=== PATIENT | male | born 2000 | race Hispanic/Latino ===

== ENCOUNTER 2021-09-20 12:14 | Emergency (ER) | payer OTHER, SELFPAY ==
[2021-09-20] MEDS ORDERED: BUPIVACAINE 0.5% PF 10 ML VIAL ONE (12:45)
--- NOTE | 2021-09-20 13:19 | EDPHYS ---
Physician Documentation [facility] Name: Misha Mas Age: 21 yrs Sex: Male : 2000 Arrival Date: 09/20/2021 Time: 12:17 Bed 15 Private MD: ED Physician Angel Webb HPI: 09/20 13:12 This 21 yrs old Male presents to ER via Ambulatory with complaints of jmm Laceration To Hand. 13:12 Onset: The symptoms/episode began/occurred acutely, just prior to arrival. Associated jmm signs and symptoms: Pertinent negatives: dizziness, heavy bleeding, loss of consciousness, numbness distal to injury, suspected foreign body. The patient has not experienced similar symptoms in the past. 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 Historical: - Allergies: 12:28 No Known Allergies; ld1 - Home Meds: 12:28 None [Active]; ld1 - PMHx: 12:28 None; ld1 - PSHx: 12:28 None; ld1 - Immunization history:: Adult Immunizations not up to date, Client reports having NOT received the Covid vaccine. Last tetanus immunization: Not up to date. - Social history:: Smoking status: Reported history of juuling and/or vaping. Patient/guardian denies using alcohol, street drugs. ROS: 13:12 Constitutional: Negative for fever, chills, and weight loss, Cardiovascular: Negative jmm for chest pain, palpitations, and edema, Respiratory: Negative for shortness of breath, cough, wheezing, and pleuritic chest pain. 13:12 Skin: Positive for laceration(s). 13:12 All other systems are negative. Exam: 13:12 Constitutional: This is a well developed, well nourished patient who is awake, alert, jmm and in no acute distress. Head/Face: atraumatic. Eyes: EOMI, no conjunctival erythema appreciated ENT: Moist Mucus Membranes Neck: Trachea midline, Supple Chest/axilla: Normal chest wall appearance and motion. Cardiovascular: Regular rate and rhythm. No edema appreciated Respiratory: Normal respirations, no respiratory distress appreciated Abdomen/GI: Non distended, soft Back: Normal ROM 13:12 Skin: 2 cm to centimeter laceration noted to the left dorsal hand proximal to the first phalanx. 13:12 Neuro: Orientation: is normal, Mentation: is normal, Memory: is normal. 13:12 Psych: Behavior/mood is pleasant, cooperative. Vital Signs: 12:26 BP 138 / 84; Pulse 72; Resp 18; Temp 98.7(O); Pulse Ox 100% on R/A; Weight 72.57 kg; ld1 Height 5 ft. 5 in. (165.10 cm); Pain 0/10; 13:48 BP 132 / 70; Pulse 85; Resp 17; Pulse Ox 100% ; sm5 12:26 Body Mass Index 26.63 (72.57 kg, 165.10 cm) ld1 Laceration: 13:16 Wound Repair of 2cm ( 0.8in ) subcutaneous laceration to left hand. Distal jmm neuro/vascular/tendon intact. Anesthesia: Local anesthetic administered with 2 mls of 0.5% marcaine. Wound prep: Moderate cleansing with betadine by me. Skin closed with 4 5-0 Prolene using simple sutures and sterile technique. Patient tolerated well. MDM: 12:43 Patient medically screened. m 13:16 Data reviewed: vital signs, nurses notes. Counseling: I had a detailed discussion with [facility] the patient and/or guardian regarding: the historical points, exam findings, and any diagnostic results supporting the discharge/admit diagnosis, the need for outpatient follow up, to return to the emergency department if symptoms worsen or persist or if there are any questions or concerns that arise at home. ED course: Patient given patient given wound infection return precautions. Administered Medications: 13:20 Drug: Marcaine (bupivacaine) (0.5 %) 10 ml Volume: 10 ml; Route: Infiltration; sm5 Disposition: 17:32 Co-signature as Attending Physician, Angel Webb MD I agree with the assessment and rn plan of care. Attestation: The patient's history, exam findings, diagnostics, and a summary of any interventions or procedures was reviewed in detail with Jag NIX. Disposition Summary: 09/20/21 13:18 Discharge Ordered Location: Home [facility] Condition: Stable [facility] Diagnosis - Laceration of the left hand [facility] Followup: [facility] - With: Private Physician - When: 7 - 10 days - Reason: Recheck today's complaints, Continuance of care, Staple/Suture removal, Re-evaluation by your physician Discharge Instructions: - Discharge Summary Sheet jmm - Laceration Care, Adult francesca Forms: - Medication Reconciliation Form francesca - Thank You Letter francesca - Antibiotic Education francesca - Prescription Opioid Use francesca Signatures: Jag Cox PA PA jmm Nieto, Roman, MD MD rn Dibbern, Lauren, RN RN ld1 Lissy Chavez RN RN sm5
--- NOTE | 2021-09-20 13:19 | ER ---
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 Coronavirus screen: At this time, the client does not indicate any symptoms associated with coronavirus-19. Ebola Screen: No symptoms or risks identified at this time. Complicating Factors: The type of wound is a puncture. Initial Sepsis Screen: Does the patient meet any 2 criteria? No. Patient's initial sepsis screen is negative. Does the patient have a suspected source of infection? No. Patient's initial sepsis screen is negative. Risk Assessment: Do you want to hurt yourself or someone else? Patient reports no desire to harm self or others. Onset of symptoms was September 20, 2021. 12:26 Method Of Arrival: Ambulatory ld1 12:26 Acuity: CAREN 4 ld1 Triage Assessment: 12:28 General: Appears in no apparent distress. comfortable, Behavior is calm, cooperative, ld1 appropriate for age. Pain: Denies pain. EENT: No signs and/or symptoms were reported regarding the EENT system. Neuro: Level of Consciousness is awake, alert, obeys commands, Oriented to person, place, time, situation, Appropriate for age. Cardiovascular: Capillary refill < 3 seconds Patient's skin is warm and dry. Respiratory: Airway is patent Respiratory effort is even, unlabored, Respiratory pattern is regular, symmetrical. GI: Abdomen is flat, non-distended. : No signs and/or symptoms were reported regarding the genitourinary system. Derm: No signs and/or symptoms reported regarding the dermatologic system. Musculoskeletal: No signs and/or symptoms reported regarding the musculoskeletal system. Injury Description: Laceration sustained to dorsal aspect of proximal phalanx of left thumb. Historical: - Allergies: 12:28 No Known Allergies; ld1 - Home Meds: 12:28 None [Active]; ld1 - PMHx: 12:28 None; ld1 - PSHx: 12:28 None; ld1 - Immunization history:: Adult Immunizations not up to date, Client reports having NOT received the Covid vaccine. Last tetanus immunization: Not up to date. - Social history:: Smoking status: Reported history of juuling and/or vaping. Patient/guardian denies using alcohol, street drugs. Screenin:42 Abuse screen: Denies threats or abuse. Denies injuries from another. Nutritional sm5 screening: No deficits noted. Tuberculosis screening: No symptoms or risk factors identified. Fall Risk None identified. Assessment: 12:43 General: Appears in no apparent distress. Behavior is calm. Pain: Complains of pain in sm5 left hand. Neuro: Level of Consciousness is awake, alert, obeys commands, Oriented to person, place, time, situation. Cardiovascular: No deficits noted. Respiratory: Reports Airway is patent Trachea midline Respiratory effort is even, unlabored. Injury Description: Laceration sustained to left hand is 0.5 to 2.5 cm long, is bleeding a small amount a dressing was applied. Vital Signs: 12:26 BP 138 / 84; Pulse 72; Resp 18; Temp 98.7(O); Pulse Ox 100% on R/A; Weight 72.57 kg; ld1 Height 5 ft. 5 in. (165.10 cm); Pain 0/10; 13:48 BP 132 / 70; Pulse 85; Resp 17; Pulse Ox 100% ; sm5 12:26 Body Mass Index 26.63 (72.57 kg, 165.10 cm) ld1 ED Course: 12:17 Patient arrived in ED. mr 12:26 Jag Cox PA is PHCP. [facility] 12:26 Angel Webb MD is Attending Physician. [facility] 12:28 Triage completed. ld1 12:28 Arm band placed on right wrist. ld1 12:31 Lissy Chavez, CHESTER is Primary Nurse. 5 13:47 Patient has correct armband on for positive identification. Bed in low position. Call [facility] light in reach. 13:47 No provider procedures requiring assistance completed. 5 13:47 Patient did not have IV access during this emergency room visit. 5 Administered Medications: 13:20 Drug: Marcaine (bupivacaine) (0.5 %) 10 ml Volume: 10 ml; Route: Infiltration; [facility] Outcome: 13:18 Discharge ordered by . francesca 13:47 Discharged to home with friend. [email or web address] 13:47 Condition: stable 13:47 Discharge instructions given to patient, friend, Instructed on follow up and referral plans. wound care, Demonstrated understanding of instructions, follow-up care, wound care. 13:48 Patient left the ED. 5 Signatures: Jag Cox PA PA jmm Rivera, Mary mr Beatrice Alfaro, RN RN ld1 Lissy Chavez RN RN sm5
[2021-09-20 13:54] VITALS: TEMP 98.7; O2SAT 100
[2021-09-20 13:55] VITALS: BP 132/70
== END 2021-09-20 13:48 | disposition home or self-care (01) ==
LOC: ER 12:14
PROC: 0JQK0ZZ Repair Left Hand Subcutaneous Tissue and Fascia, Open Approach (ICD-10-PCS; principal; 2021-09-20)
DX: S61.412A Laceration without foreign body of left hand, initial encounter (principal); W26.0XXA Contact with knife, initial encounter
CPT/HCPCS: 99283